=== PATIENT | male | born 1980 | race Caucasian/White ===

== ENCOUNTER 2016-11-15 10:18 | Inpatient (IN) | payer OTHER ==
[2016-11-15] VITALS (20 sets, daily range): BP systolic 104–143; BP diastolic 49–79; PULSE 73–113; RESP 12–20; Ht 190.5 cm; Wt 85.2 kg
[~2016-11-15] VITALS: Ht 190.5 cm; Wt 85.2 kg
[~2016-11-15 10:18] MED LIST: CEFAZOLIN 1 GM INJ ONE; GLYCOPYRROLATE 0.4 MG INJ ONE; LIDOCAINE 2% (SDV) 5 ML INJ ONE; NEOSTIGMINE 3 MG/3 ML SYRINGE ONE; ONDA4TAB14 PO; PROPOFOL 200 MG INJ ONE; ROCURONIUM 50 MG INJ ONE; SUCCINYLCHOLINE CHLORIDE 100 MG/5 ML SYG IV ONE
[2016-11-15] MEDS ORDERED: HYDR-902 PO (10:57)
[2016-11-15] MEDS ORDERED: CEFAZOLIN 2 GM/50 ML (PMX) 50 ML IVPB ONE (11:00)
[2016-11-15] MEDS ORDERED: GELATIN SIZE 100 SPONGE ONE (11:04)
[2016-11-15] MEDS ORDERED: THROMBIN 5000 UNIT VIAL ONE ×2 (11:05→13:04)
[2016-11-15] MEDS ORDERED: POLYMYXIN/BACITRACIN 1L IRRIG ONE ×2 (11:05→13:05)
[2016-11-15] MEDS ORDERED: BUPIVACAINE 0.25% (MPF) 30 ML INJ ONE (11:05)
[2016-11-15] MEDS ORDERED: BUPIVACAINE 0.25%/EPI (SDV) 30 ML INJ ONE (11:05)
--- NOTE | 2016-11-15 11:58 | HPN ---
Date/Time of Note Date/Time of Note DATE: 11/15/16 TIME: 11:57 Interval H&P Admission Note Pt. seen H&P reviewed: No system changes LIVE DAY MD Nov 15, 2016 11:57
[2016-11-15] MEDS: CEFAZOLIN 1 GM/50 ML (PMX) 50 ML IVPB SCH ×2 (12:00→20:31)
[2016-11-15] MEDS ORDERED: ONDANSETRON 4 MG INJ IV PRN ×2 (12:00→14:30)
[2016-11-15] MEDS ORDERED: DIPHENHYDRAMINE 50 MG INJ IV PRN ×2 (12:00→14:30)
[2016-11-15] MEDS ORDERED: PROCHLORPERAZINE 10 MG INJ IV PRN (12:00)
[2016-11-15] MEDS ORDERED: NALOXONE (0.4 MG/ML) INJ IV PRN (12:00)
[2016-11-15] MEDS ORDERED: CYCLOBENZAPRINE 10 MG TAB PO PRN (12:00)
[2016-11-15] MEDS ORDERED: CEPASTAT LOZENGE MT PRN (12:00)
[2016-11-15] MEDS ORDERED: HYDROmorphONE 1 MG/ML SYG IV PRN (12:00)
[2016-11-15] MEDS ORDERED: HYDROCODONE/APAP (5/325) TAB PO PRN (12:00)
[2016-11-15] MEDS ORDERED: ACETAMINOPHEN 325 MG TAB PO PRN (12:00)
[2016-11-15] MEDS ORDERED: FENTAnyl 50 MCG/ML VIAL ONE (12:12)
[2016-11-15] MEDS ORDERED: HEMOSTATIC MATRIX SYG ZFS ONE (13:40)
[2016-11-15] MEDS ORDERED: FENTAnyl 50 MCG/ML VIAL IV PRN ×2 (14:30)
[2016-11-15] MEDS ORDERED: MEPERIDINE 25 MG INJ IV PRN (14:30)
[2016-11-15] MEDS ORDERED: METOCLOPRAMIDE 10 MG INJ IV PRN (14:30)
[2016-11-15] MEDS ORDERED: HYDROmorphONE (0.2 MG/ML) 10ML SYG IV PRN ×3 (14:30)
[2016-11-15] MEDS ORDERED: OXYCODONE/ACETAMINOPHEN (5/325) TAB PO PRN (14:30)
--- NOTE | 2016-11-15 17:04 | RADRPT ---
PROCEDURE: Intraoperative imaging of the cervical spine with fluoroscopy. CLINICAL INDICATION: Neck pain. Intraoperative. TECHNIQUE: 16 images of the cervical spine were obtained in the operating room with an image inten sifier. No radiologist was in attendance. 52.3 seconds of fluoroscopy time was used. COMPARISON: No prior study is available for comparison. FINDINGS: Images demonstrate surgical instruments overlying the cervical spine. IMPRESSION: 1. Intraoperative imaging of the cervical spine. RPTAT: QQ .Dawood Herrera MD, MD Date Time Electronically viewed and signed by .Dawood Herrera MD, MD on 11/15/2016 17:04 .R/
--- NOTE | 2016-11-15 17:13 | OPR ---
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 POSTOPERATIVE DIAGNOSIS: C3 large central disk herniation with cord compression and C5-C6 right-sided disk herniation with nerve root compression. OPERATION PERFORMED: 1. C3-C4 diskectomy with complete disk endplate preparation. 2. Decompression of bilateral foramens and removal of extruded disk fragment from the central canal compressing the spinal cord. 3. C3-C4 disk arthroplasty using Mobi-C 5 mm implant. 4. C5-6 diskectomy with bilateral foraminal decompression and removal of disk fragments. 5. Preparation of endplates. 6. C5-C6 disk arthroplasty with Mobi-C measuring 5 mm. 7. Use of intraoperative fluoroscopy. 8. Use of intraoperative neuromonitoring. 9. Use of intraoperative microscope for microdissection. 10. Cosmetic wound closure of 3 cm incision. SURGEON: LIVE DAY MD. BACK END WEB DEVELOPER: LALITO PINZON. FINDINGS: At start of surgical procedure, it was noted that the patient has nerve root signals that were diminished at the C5 level on the left side 40%, right side 50% and C6 level on the right side down 30%. Both returned back to normal symmetric due to contralateral side at the conclusion of the procedure. BLOOD USAGE: None. IMPLANTS: Mobi-C x2 measuring 5 mm in height. ESTIMATED BLOOD LOSS: 50 mL. DRAINS: None. SPECIMENS: C3-C4, C5-C6 disk material. COMPLICATIONS: None. TYPE OF ANESTHESIA: General, KASHMIR ARANGO MD. BRIEF PREOPERATIVE HISTORY: Patient is a healthy 36-year-old male who presented with significant radiating symptoms of upper extremities with some findings of myelopathy secondary to large disk herniation at C3-C4 causing central canal cord compression at C3-4 as well as the disk herniation noted at C5-C6 with right-sided foraminal compression. The patient was indicated for surgery as stated above. The indication for the patient to undergo a disk arthroplasty was due to the fact of his age and significant findings on MRI imaging of disk herniation with no significant neck pain due to the disk herniation causing nerve compression and spinal cord compression. Patient also had this procedure done at noncontiguous levels, meaning that we had C3-C4 and C5-C6, but not C4-C5 that was addressed. The reason for this was because the C4-5 was healthy and did not need to be incorporated in fusion or arthroplasty. In addition, the arthroplasty would help provide to maintain motion to help to decrease the possibility of degeneration of that intermediate disk between the 2 levels that were addressed. The patient understood the plan and consented to surgery as stated above and proceeded with surgery after authorization. OPERATION IN DETAIL: The patient brought to the operating room, placed under anesthesia by Dr. rAango and given 2 grams of Ancef. The patient was supine on the bed with arms tucked at the side and bumps placed under the shoulder blades for the neck to be in an extended position. The incision line was on the left side transversely and measured with AP and lateral fluoroscopy for proper positioning between the C3-C4 and C5-C6 level. Once this was done, the subcutaneous skin was injected with 0.25% Marcaine with epinephrine and incision done 3 mm transversely and determined the plane between the sternocleidomastoid and the trachea. Once this was done, we found the C3-C4 level which we addressed initially, placed a bent spinal needle into it and took a lateral and AP lower fluoroscopy image to make sure we were in proper position and started with our procedure. At the C3-C4 level, we performed a complete diskectomy. After removing all material from the endplates as well as opening the posterior longitudinal ligament, we removed the extruded disk fragment within the spinal canal was compressing the spinal cord. Once this was done, we decompressed bilateral foramens and controlled all bleeding with FloSeal. Once this was completed, we measured a 5 mm in height, cervical disk replacement made by Mobi-C that measured proper positioning on AP and lateral fluoroscopy and then placed the implant. The implant was placed under fluoroscopy to make sure it was properly positioned as far back posteriorly as possible and plates were in alignment. This was done carefully under AP and lateral fluoroscopy after completion of our diskectomy. Once we were done with this level and all hemostasis was achieved, we removed our attention to the C5-C6 level, where bent spinal needles were placed to verify proper position and started with a complete diskectomy at the level with decompression of the bilateral foramens removing disk fragments from the right C5-C6 level as well as opening the posterior longitudinal ligament to completely decompress the central canal. Once this was done, we again sized to 5 mm template and placed the same size Mobi-C implanted to the C5-C6 level and verified proper positioning on AP and lateral fluoroscopy. Once concluded, we took final films to make sure all hemostasis was achieved with bipolar cautery and filled our [place] pin holes with bone wax. The patient 's wound was closed with 2-0 Vicryl for the platysma and 3-0 Vicryl for subcutaneous skin and then Dermabond for the skin closure with clean and dry dressing and patient's neck turned into a cervical collar for comfort. The patient will be admitted overnight for postop pain control, physical therapy , antibiotics, and discharged home when appropriate. All instrument, sponge counts and needles were correct at the conclusion of the procedure. Dictated By: LIVE RUBIO/MASON Conf#: [id number] DID#: [id number] MTDD
[2016-11-15] MEDS: D5W-0.45 NACL + KCL 20 MEQ 1,000 ML IV SCH ×2 (18:07→18:40)
[2016-11-15] MEDS: HYDROCODONE/APAP (5/325) TAB PO PRN (18:08)
[2016-11-16 00:02] VITALS: BP 124/63; PULSE 74; RESP 18
[2016-11-16] MEDS: HYDROCODONE/APAP (5/325) TAB PO PRN ×3 (00:23→08:42)
[2016-11-16] MEDS: D5W-0.45 NACL + KCL 20 MEQ 1,000 ML IV SCH (01:18)
[2016-11-16 04:02] VITALS: BP 121/62; PULSE 72; RESP 17
[2016-11-16] MEDS: CEFAZOLIN 1 GM/50 ML (PMX) 50 ML IVPB SCH (04:42)
[2016-11-16] MEDS ORDERED: PANTOPRAZOLE 40 MG INJ IV SCH (06:00)
[2016-11-16 08:19] VITALS: BP 138/62; RESP 19
--- NOTE | 2016-11-16 08:42 | DS ---
Date/Time of Note Date/Time of Note DATE: 11/16/16 TIME: 08:39 Discharge Summary Admission/Discharge Info Admit Date/Time Nov 15, 2016 at 10:18 Discharge Date/Time 11/16/2016 Final Diagnosis C3-4 and C5-6 disc arthroplasty Patient Condition: Good Consults none Procedures C3-4 and C5-6 arthroplasty Hx of Present Illness did well with pain control, tolerating PO pain meds and diet Hospital Course did well with PO pain meds and ambulation post -op Home Meds Reported Medications Hydrocodone/Acetaminophen ([place] 10-325 Tablet) 1 Each Tablet, 1 EACH PO Q8 Y for PAIN, TAB 11/15/16 Discontinued Reported Medications [none] No Conflict Check 02/10/11 Discontinued Scripts Ondansetron (Ondansetron Odt) 4 Mg Tab.rapdis, 4 MG PO Q6H Y for NAUSEA AND/OR VOMITING, #30 TAB Prov:ALEKSANDR LAUREN MD 09/03/16 Follow-up Plan we will call for appt in 7-10 days Pending Labs none LIVE DAY MD Nov 16, 2016 08:42
--- NOTE | 2016-11-16 08:45 | PDOCDIS ---
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
--- NOTE | 2016-11-16 12:13 | RADRPT ---
PROCEDURE: XR Cervical Spine. CLINICAL INDICATION: Para. TECHNIQUE: Three views of the cervical spine were performed. The images were reviewed on a PACS wo [address]. COMPARISON: None. FINDINGS: There is straightening of the normal cervical lordosis related to muscle spasm or positioning. There is mild curvature convex right. There is evidence of this prosthesis placement at C3-C4 and C5-C6 i n near anatomic alignment without acute radiographic abnormality. There is mild spondylosis at thes e levels. Mild spondylosis seen at C4-C5. The remaining disk spaces are preserved. Vertebral body heights are maintained. No evidence for subluxation. Recent surgical changes are noted in the sof t tissues. IMPRESSION: 1. Intervertebral disk of the prosthetic placement at C3-C4 and C5-C6, in near anatomic alignment. 2. Recent surgical changes in the soft tissues. RPTAT: TT .Jorge Mott MD, Date Time Electronically viewed and signed by .Jorge Mott MD, on 11/16/2016 12:13 .d/
== END 2016-11-16 14:10 | disposition home or self-care (01) | DRG 518 ==
LOC: REC 10:18 → MS1 17:45
PROVIDERS: ADMIT Orthopaedic Surgery Orthopaedic Surgery of the Spine; ATTEND Orthopaedic Surgery Orthopaedic Surgery of the Spine
PROC: 0RR30JZ Replacement of Cervical Vertebral Disc with Synthetic Substitute, Open Approach (ICD-10-PCS; principal; 2016-11-15 13:00)
DX: M50.01 Cervical disc disorder with myelopathy, high cervical region (principal); F17.210 Nicotine dependence, cigarettes, uncomplicated
CPT/HCPCS: 72040; 86850; 86900; 86901; 88304; 97162; 97166; C9113; J0330; J0690; J1170; J2175; J2405; J2710; J3010; J3480

== ENCOUNTER 2017-08-18 18:18 | Emergency (ER) | payer OTHER ==
[~2017-08-18] VITALS: Ht 190.5 cm; Wt 87.1 kg
[~2017-08-18 18:18] MED LIST changes: -CEFAZOLIN 1 GM INJ ONE; -GLYCOPYRROLATE 0.4 MG INJ ONE; +HYDR-902 PO; -LIDOCAINE 2% (SDV) 5 ML INJ ONE; -NEOSTIGMINE 3 MG/3 ML SYRINGE ONE; -ONDA4TAB14 PO; -PROPOFOL 200 MG INJ ONE; -ROCURONIUM 50 MG INJ ONE; -SUCCINYLCHOLINE CHLORIDE 100 MG/5 ML SYG IV ONE
[2017-08-18 18:25] VITALS: Ht 190.5 cm; Wt 87.1 kg
[2017-08-18] MEDS ORDERED: ONDANSETRON (ODT) 4 MG TAB ODT STA (19:19)
[2017-08-18] MEDS ORDERED: HYDROCODONE/APAP (5/325) TAB PO ONE (19:30)
[2017-08-18] MEDS ORDERED: MECLIZINE 12.5 MG TAB PO ONE (19:30)
--- NOTE | 2017-08-18 20:07 | RADRPT ---
PROCEDURE: CT Cervical Spine. CLINICAL INDICATION: Neck pain TECHNIQUE: A CT of the cervical spine was performed on a GE [employer]ato VCT 64-slice CT scanner ut ilizing thin section axial images from the skull base through the thoracic inlet. Sagittal and gi nal reformatted images were made. The CTDIvol is 22.4 mGy and the DLP is 661 mGycm. One or more of the following dose reduction techniques were utilized: 1.) Automated exposure control 2.) Adjustment of the mA +/- kV according to patient's size 3.) Use of iterative reconstruction technique. COMPARISON: None. FINDINGS: Intervertebral disc prosthesis are present at C3-C4 and C5-C6. There is mild degenerative endplate c hanges at these levels as evidenced by small anterior and posterior osteophyte formation. Vertebral body alignment is maintained. There is straightening of the normal cervical lordosis. The cervical n eural foramina are widely patent. The cervical spinal canal is widely patent. No acute fracture nor dislocation. No suspicious osseous lesions. Visualized lung apices are clear. IMPRESSION: Intervertebral disc prosthesis present at C3-C4 and C5-C6 with mild degenerative endplate changes at these levels. Otherwise, no significant abnormalities. Central spinal canal and cervical neural for rosy are patent. No acute fracture. Physician Allison Date Time Electronically viewed and signed by Physician Allison on 08/18/2017 20:07 ML/
[2017-08-18] MEDS ORDERED: HYDR-902 PO (20:20)
[2017-08-18] MEDS ORDERED: IBUP800T25 PO (20:20)
--- NOTE | 2017-08-18 20:24 | ERD ---
ER Documentation Chief Complaint Chief Complaint neck & PORTILLO today HPI Patient is a 37-year-old male who presents with neck pain that began today. He denies any trauma but states he has history of surgery on his neck to replace bulging disks several years ago. He states that he typically will wake up with headache that goes away by mid day however yesterday today it did not go away by the midday so he came into the emergency room. He denies any changes to his vision. He denies any fever. He states he has occasional nausea but no vomiting. ROS All systems reviewed and are negative except as per history of present illness. Medications Home Meds Active Scripts Hydrocodone/Acetaminophen ([place] 10-325 Tablet) 1 Each Tablet, 1 TAB PO Q6H Y for PAIN, #15 TAB Prov:VANESA POOLE PA-C 08/18/17 Ibuprofen* (Motrin*) 800 Mg Tab, 800 MG PO Q6, #30 TAB Prov:VANESA POOLE PA-C 08/18/17 Reported Medications Hydrocodone/Acetaminophen ([place] 10-325 Tablet) 1 Each Tablet, 1 EACH PO Q8 Y for PAIN, TAB 11/15/16 Allergies Allergies: Coded Allergies: bee pollen (Verified Allergy, Severe, 11/15/16) PMhx/Soc Medical and Surgical Hx: pt denies Medical Hx History of Surgery: Yes (cervical disc surgery (summer) & pin in leg as child) Anesthesia Reaction: No Hx Neurological Disorder: No Hx Respiratory Disorders: No Hx Cardiac Disorders: No Hx Psychiatric Problems: No Hx Miscellaneous Medical Probl: Yes (C/S disc herniation) Hx Alcohol Use: No Hx Substance Use: No Hx Tobacco Use: Yes Smoking Status: Current some day smoker FmHx Family History: No diabetes Physical Exam Vitals Vital Signs Date Time Temp Pulse Resp B/P Pulse Ox O2 Delivery O2 Flow Rate FiO2 08/18/17 18:25 100.2 85 18 143/81 98 Physical Exam INITIAL VITAL SIGNS: Reviewed by me GENERAL: Awake, alert and oriented x 4, well appearing, nontoxic, speaking in full sentences. No acute distress HEAD: Atraumatic NECK: Supple. No masses. Full range of motion. No meningismus. No midline tenderness. EYES: EOMI. PERRL. THROAT: No tonilar erythema or edema. No exudates. Uvula midline. No kissing tonsils. RESPIRATORY: Clear to auscultation bilaterally. Symmetric chest wall rise. No wheezing or rales. No accessory muscle use. CV: Regular rate and rhythm. No murmurs, rubs, or gallops. ABDOMEN: Soft, non-distended. Nontender. NEUROLOGIC: Normal mental status and speech. Face is symmetric. Moves all extremities equally. Motor and sensory distally intact. Normal coordination. Ambulates with a strong steady gait. Results 24 hrs Current Medications Medications (Trade) Dose Ordered Sig/Jose Antonio Route PRN Reason Start Time Stop Time Status Last Admin Dose Admin Meclizine HCl (Antivert) 25 mg ONCE ONCE PO 08/18/17 19:30 08/18/17 19:31 DC 08/18/17 19:27 Ondansetron HCl (Zofran Odt) 4 mg ONCE STAT ODT 08/18/17 19:19 08/18/17 19:20 DC 08/18/17 19:27 Acetaminophen/ Hydrocodone Bitart ([place] (5/325)) 1 tab ONCE ONCE PO 08/18/17 19:30 08/18/17 19:31 DC 08/18/17 19:27 Procedures/MDM Patient presents with flareup of neck pain. He has history of surgery there. He denies any trauma. No vomiting. He denies fever at home however does have temperature 100.2 here in the ER however we rechecked it and it was 97.9. CT scan shows no acute abnormalities with his hardware in cervical spine. He had improvement of his symptoms with Zofran [place] and meclizine. I have a low suspicion for meningitis. I reviewed the case with Dr. Caicedo and we agree he is scheduled for outpatient management with pain control and he was given pain medications. Patient counseled regarding my diagnostic impression and care plan. Prior to discharge all questions answered. Pt agrees with treatment plan and understands strict return precautions. Pt is instructed to follow up with primary care provider within 24-48 hours. Precautionary instructions provided including instructions to return to the ER if not improving or for any worsening or changing symptoms or concerns. Departure Diagnosis: Primary Impression: Cervical strain Condition: Stable Patient Instructions: Neck Pain, No Trauma Additional Instructions: Call your primary care doctor TOMORROW for an appointment during the next 1-2 days.See the doctor sooner or return here if your condition worsens before your appointment time. VANESA POOLE PA-C Aug 18, 2017 20:24
[2017-08-18 20:32] VITALS: TEMP 97.9
== END 2017-08-18 20:32 | disposition home or self-care (01) ==
LOC: FTE 18:18
DX: S16.1XXA Strain of muscle, fascia and tendon at neck level, initial encounter (principal); F17.210 Nicotine dependence, cigarettes, uncomplicated; X58.XXXA Exposure to other specified factors, initial encounter; Y92.9 Unspecified place or not applicable
CPT/HCPCS: 72125; Z7502; Z7610

== ENCOUNTER 2017-09-20 14:12 | Inpatient (IN) | END 2017-09-22 12:08 | disposition home or self-care (01) | DRG 153 ==

== ENCOUNTER 2017-11-20 12:02 | Day surgery (SDC) | END 2017-11-20 16:28 | disposition home or self-care (01) ==

== ENCOUNTER 2017-11-21 01:39 | Emergency (ER) | END 2017-11-21 05:50 | disposition home or self-care (01) ==

== ENCOUNTER 2017-11-25 06:57 | Emergency (ER) | END 2017-11-25 09:31 | disposition home or self-care (01) ==

== ENCOUNTER 2017-12-29 16:25 | Emergency (ER) | END 2017-12-29 18:50 | disposition left against medical advice (07) ==

== ENCOUNTER 2018-12-06 02:39 | Emergency (ER) | payer OTHER ==
[~2018-12-06] VITALS: Ht 182.9 cm; Wt 90.9 kg
[2018-12-06 02:47] VITALS: BP 133/65; PULSE 75; RESP 18; Ht 182.9 cm; Wt 90.9 kg
--- NOTE | 2018-12-06 05:18 | ERD ---
ER Documentation Chief Complaint Chief Complaint pain left knee, states equipment fell on knee around 0140 HPI 38-year-old male, presents the emergency department, complaining of an acute left knee injury that occurred approximately at 1:40 AM. 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 The pain is dull, constant, 8/10. The patient took ibuprofen 600 mg prior to arrival with very mild improvement of the symptoms. He denies distal weakness, no numbness or tingling. ROS All systems reviewed and are negative except as per history of present illness. Medications Home Meds Active Scripts Hydrocodone/Acetaminophen ([place] 5-325 Tablet) 1 Each Tablet, 1 TAB PO Q6H PRN for PAIN, #7 TAB Prov:SUZIE LORENZO MD 12/06/18 Acetaminophen* (Tylenol*) 325 Mg Tablet, 2 TAB PO Q8 PRN for PAIN AND OR ELEVATED TEMP, #20 TAB Prov:SUZIE LORENZO MD 12/06/18 Ibuprofen* (Motrin*) 600 Mg Tab, 600 MG PO Q8, #20 TAB Prov:SUZIE LORENZO MD 12/06/18 Allergies Allergies: Coded Allergies: bee pollen (Verified Allergy, Severe, 12/29/17) No Known Drug Allergies (Verified Allergy, Unknown, 12/06/18) PMhx/Soc History of Surgery: Yes (tolnsillectomy 2 days ) Anesthesia Reaction: No Hx Neurological Disorder: No Hx Respiratory Disorders: No Hx Cardiac Disorders: No Hx Psychiatric Problems: No Hx Miscellaneous Medical Probl: No Hx Alcohol Use: No Hx Substance Use: No Hx Tobacco Use: Yes FmHx Family History: No diabetes, No coronary disease Physical Exam Vitals Vital Signs Date Temp Pulse Resp B/P (MAP) Pulse Ox O2 O2 Flow FiO2 Time Delivery Rate 12/06/18 98.2 75 18 133/65 100 02:47 (87) Physical Exam Const: No acute distress Head: Atraumatic Eyes: Normal Conjunctiva ENT: Normal External Ears, Nose and Mouth. Neck: Full range of motion. No meningismus. Resp: Clear to auscultation bilaterally Cardio: Regular rate and rhythm, no murmurs Abd: Soft, non tender, non distended. Normal bowel sounds Skin: No petechiae or rashes Back: No midline or flank tenderness Ext: Left knee with normal inspection, tenderness to palpation, decreased range of motion due to pain. Distal neurovascular exam intact. Neur: Awake and alert Psych: Normal Mood and Affect Results 24 hrs Current Medications Medications Dose Sig/Jose Antonio Start Time Status Last (Trade) Ordered Route PRN Stop Time Admin Dose Reason Admin 1 tab ONCE ONCE 12/06/18 DC 12/06/18 Acetaminophen PO 05:30 05:34 / 12/06/18 05:31 Hydrocodone Bitart ([place] ()) Patient: SHANELLE ESTRELLA : 1980 Age: 38 Sex: M MR #: [id number] DOS: 12/06/18521 Ordering MD: SUZIE LORENZO MD Location: [facility] Room/Bed: PROCEDURE: XR Knee Left 3 View (Routine) CLINICAL INDICATION: Left knee pain. Injury. TECHNIQUE: VIEWS: 3 IMAGES: 3 COMPARISON: None. FINDINGS: OSSEOUS STRUCTURES Fractures: None. JOINTS Joint Space(s): Preserved. Effusion: A small suprapatellar effusion is suggested. IMPRESSION: 1. No acute osseous abnormalities. RPTAT:HGST Celso Mao, Physician Date Time Procedures/MDM Acute left knee pain: no red flags. Differential diagnosis include but not limited to: Knee contusion, meniscus injury, tendon/ligament injury, arthritis; low suspicion for fracture, dislocation, septic arthritis. Neurovascular exam grossly intact. no clinical findings suggestive of acute infectious process, no acute deformity, no edema, no rashes. Pertinent Data: X-rays: No fracture or dislocation Physical examination and clinical presentation consistent most likely with acute knee contusion. During the ED course the patient received treatment with [place] p.o. presenting overall improvement of the symptoms. Results and clinical impression discussed with the patient who agrees with management. The patient is stable to be treated outpatient and will be discharged home with recommendations for ice, rest and partial immobilization. NSAIDs 3 times daily for 5 days and close monitoring. The patient was instructed to follow up with the primary care provider in the next 48h. If symptoms persist, worsen or new symptoms develop, then patient should return to the ED immediately. Instructions explained and given to patient with acknowledgment and demonstrated understanding. Disclaimer: Inadvertent spelling and grammatical errors are likely due to EHR/dictation software use and do not reflect on the overall quality of patient care. Also, please note that the electronic time recorded on this note does not necessarily reflect the actual time of the patient encounter. Departure Diagnosis: Primary Impression: Derangement of knee, left Condition: Stable Additional Instructions: Thank you very much for allowing us to participate in your care. Your health and safety is our top priority at [facility]. Call your primary care doctor TOMORROW for an appointment during the next 2-4 days and bring all the information and medications prescribed. Have prescriptions filled and follow precisely the directions on the label. If the symptoms get worse and your provider is unavailable, return to the Emergency Department immediately. SUZIE LORENZO MD Dec 06, 2018 05:18
[2018-12-06] MEDS ORDERED: HYDROCODONE/APAP (5/325) TAB PO ONE (05:30)
[2018-12-06] MEDS ORDERED: IBUP-1542 PO (06:12)
[2018-12-06] MEDS ORDERED: ACET325T33 PO (06:12)
[2018-12-06] MEDS ORDERED: HYDR-4011 PO (06:12)
== END 2018-12-06 06:39 | disposition home or self-care (01) ==
LOC: FTE 02:39
DX: M23.92 Unspecified internal derangement of left knee (principal); Z87.891 Personal history of nicotine dependence
CPT/HCPCS: 73562

== ENCOUNTER 2019-02-19 23:57 | Emergency (ER) | payer OTHER ==
[~2019-02-19] VITALS: Wt 90.8 kg
[~2019-02-19 23:57] MED LIST changes: +ACET325T33 PO; +HYDR-4011 PO; -HYDR-902 PO; +IBUP-1542 PO
[2019-02-20] MEDS ORDERED: IBUPROFEN 600 MG TAB PO ONE (02:00)
[2019-02-20] MEDS ORDERED: NAPR-985 PO (03:37)
[2019-02-20 04:27] VITALS: BP 127/70; PULSE 71; RESP 18
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
== END 2019-02-20 04:28 | disposition home or self-care (01) ==
LOC: FTE 23:57
DX: S13.4XXA Sprain of ligaments of cervical spine, initial encounter (principal); F17.210 Nicotine dependence, cigarettes, uncomplicated; V49.40XA Driver injured in collision with unspecified motor vehicles in traffic accident, initial encounter
CPT/HCPCS: 72072; 72100; 72125